=== PATIENT | female | born 1975 | race African-American/Black ===

== ENCOUNTER 2018-08-15 16:08 | Outpatient (CLI) | payer OTHER ==
--- NOTE | 2018-08-15 16:39 | ULT ---
LEFT LOWER EXTREMITY VENOUS DUPLEX ULTRASOUND WITH DOPPLER: CPT: 80710 ICD-10-PCS: B54D INDICATIONS: Pain and edema. TECHNIQUE: Color-flow Doppler, spectral wave-form analysis of pulsed Doppler, and padron-scale imaging with compre ssion and augmentation were used to evaluate the bilateral common femoral, femoral, popliteal, leadership program internship ior tibial, and superficial femoral veins, and the proximal portions of the profunda femoral and grea ter saphenous veins. FINDINGS: There is appropriate compressibility and flow within the deep venous system of the left lower extremi ty. IMPRESSION: No deep venous thrombosis. POS: C
== END 2018-08-15 16:09 | disposition home or self-care (01) ==
LOC: ULT 16:08
PROVIDERS: ATTEND Family Medicine
DX: M79.662 Pain in left lower leg (principal)